=== PATIENT | male | born 1940 | race Hispanic/Latino ===

== ENCOUNTER → 2022-11-12 | Outpatient (CLI) | payer MEDICARE ==
[~2022-11-12] MED LIST: AEC81 PO; ISOS30TA92 PO; LEVO500T2 PO; LOSA25TA41 PO; METR-172 PO; OMEP20CA12 PO; TAMS-1 PO
[2022-11-12 16:21] LABS: CREATININE 1.3 mg/dL (0.5-1.5); POTASSIUM 3.7 mmol/L (3.5-5.1)
== END | disposition home or self-care (01) ==
LOC: LAB 15:40
PROVIDERS: ATTEND Internal Medicine Cardiovascular Disease
DX: I10 Essential (primary) hypertension (principal)
CPT/HCPCS: 36415; 80048